=== PATIENT | male | born 2000 | race Asian ===

== ENCOUNTER 2022-09-16 02:23 | Emergency (ER) | payer OTHER ==
[2022-09-16 03:04] LABS: Absolute Lymphocytes (CBC) 1.7 K/uL (0.7-4.9); Hematocrit 39.8 % (39.6-49.0); Lymphocytes % 29.6 % (15.3-44.8); MCV 83.5 fL (80-100); MPV 7.6 fL (7.6-11.3); RBC Red Blood Cell Count 4.77 M/uL (4.33-5.43)
[2022-09-16 03:09] LABS: Protime INR 1.04
[2022-09-16] MEDS ORDERED: METOCLOPRAMIDE 10 MG/2mL INJ ONE (03:11)
[2022-09-16] MEDS ORDERED: D5 0.45 NS 1,000 ML IV ONE (03:11)
[2022-09-16] MEDS ORDERED: ONDANSETRON 4 MG/2 ML VIAL ONE (03:11)
[2022-09-16] MEDS ORDERED: NA CHLORIDE 0.9% 1,000 ML ONE (03:11)
[2022-09-16] MEDS ORDERED: THIAMINE 200 MG/2 ML INJ ONE (03:11)
[2022-09-16 03:17] LABS: Albumin 4.1 g/dL (3.4-5.0); BUN Blood Urea Nitrogen 12 mg/dL (7-18); Bicarbonate 25 mEq/L (21-32); Bilirubin Direct 0.2 mg/dL (0-0.2); Glucose Level 103 mg/dL (74-106); Potassium 3.4 mEq/L (3.5-5.1); Sodium Level 136 mEq/L (136-145)
[2022-09-16 03:27] LABS: AST/SGOT 37 U/L (15-37); Alkaline Phosphatase 51 U/L (45-117); Bilirubin Total 1.1 mg/dL (0.2-1.0); Glomerular Filtration Rate 119 ml/min (=/>90); Protein, Total 7.1 g/dL (6.4-8.2)
[2022-09-16 03:29] LABS: ALT/SGPT 28 U/L (16-61)
[2022-09-16 06:12] LABS: Urine Blood Negative (Negative); Urine Glucose Negative (Negative); Urine Protein Negative (Negative)
[2022-09-16 06:26] LABS: Barbiturates NEGATIVE (NEGATIVE); Benzodiazepines NEGATIVE (NEGATIVE); Cocaine NEGATIVE (NEGATIVE); METHAMPHETAM NEGATIVE (NEGATIVE); Methadone NEGATIVE (NEGATIVE); Opiates NEGATIVE (NEGATIVE); Phencyclidine NEGATIVE (NEGATIVE); THC Cannibis NEGATIVE (NEGATIVE)
--- NOTE | 2022-09-16 06:34 | EDPHYS ---
Physician Documentation [facility] Name: Lauri Pierson Age: 22 yrs Sex: Male : 2000 Arrival Date: 09/16/2022 Time: 02:24 Bed 4 Private MD: ED Physician Abilio Washington HPI: 09/16 02:28 This 22 yrs old Other Male presents to ER via Unassigned with complaints of sp4 intoxication. 05:40 22-year-old male presents with EMS for acute alcohol intoxication. Patient was found sp4 sitting in his car [place] the gas station, patient has apparently vomited in his car and was found to be unresponsive. On presentation patient is responsive to painful stimuli but is not able to communicate. Patient is obviously heavily intoxicated without signs of acute seizure and without signs of lateralizing weakness. . Historical: - Allergies: 02:24 No Known Allergies; ha1 - Home Meds: 02:24 None [Active]; ha1 - Immunization history:: Adult Immunizations up to date. - Social history:: Smoking status: unknown. - Family history:: not pertinent. ROS: 05:40 Constitutional: Patient not able to communicate any review of systems sp4 05:40 Unable to obtain ROS due to obtunded state, Heavy intoxication. Exam: 05:40 Constitutional: This is a well developed, well nourished patient and in no acute sp4 distress. Appears heavily intoxicated, moving all extremities, responds to painful stimuli, noncommunicative at this time. Shivering, not able to communicate and cooperate at this time Head/Face: Normocephalic, atraumatic. Eyes: Pupils equal round and reactive to light Lids and lashes normal. Conjunctiva and sclera are not injected. Cornea within normal limits. Periorbital areas with no swelling, redness, or edema. ENT: Nares patent. No nasal discharge, no septal abnormalities noted. Tympanic membranes are normal and external auditory canals are clear. Oropharynx with no redness, swelling, or masses, exudates, or evidence of obstruction, uvula midline. Mucous membranes moist. Positive gag reflex Neck: Trachea midline, no thyromegaly or masses palpated, and no cervical lymphadenopathy. Supple, No Meningismus. Chest/axilla: Normal chest wall appearance and motion. Nontender with no deformity. No lesions are appreciated. Cardiovascular: Regular rate and rhythm with a normal S1 and S2. No gallops, murmurs, or rubs. Normal PMI, no JVD. No pulse deficits. Respiratory: Lungs have equal breath sounds bilaterally, clear to auscultation and percussion. No rales, rhonchi or wheezes noted. No increased work of breathing, no retractions or nasal flaring. Abdomen/GI: Soft, non-tender, with normal bowel sounds. No distension or tympany. No guarding or rebound. Back: No spinal tenderness. No costovertebral tenderness. Male : Normal genitalia with no discharge or lesions. Skin: Warm, dry with normal turgor. Normal color with no rashes, no lesions, and no evidence of cellulitis. MS/ Extremity: Pulses equal, no cyanosis. No deformity, moves all extremities secondary to painful stimuli Neuro: Heavily intoxicated, somnolent, not oriented, exam is limited but grossly no not lateralizing deficits response to painful stimuli 05:40 ECG was reviewed by the Attending Physician. EKG time 0 2:55 AM there is normal sinus sp4 rhythm at a rate of 78, no ST elevation or depression, no ectopy, early repolarization, normal EKG overall Vital Signs: 02:24 BP 101 / 55; Pulse 76; Resp 14 S; Temp 97; Pulse Ox 99% on R/A; Weight 72.57 kg; ha1 03:20 BP 97 / 60; Pulse 78; Resp 13 S; Pulse Ox 99% on R/A; ha1 04:20 BP 99 / 50; Pulse 77; Resp 15; Pulse Ox 99% ; ha1 05:00 BP 94 / 55; Pulse 66; Resp 14 S; Pulse Ox 99% on R/A; ha1 06:00 BP 94 / 60; Pulse 86; Resp 17 S; Pulse Ox 100% on R/A; ha1 [place] Coma Score: 05:40 Eye Response: to pain(2). Motor Response: localizes pain(5). Verbal Response: sp4 incomprehensible(2). Total: 9. MDM: 02:39 Patient medically screened. sp4 05:40 Differential Diagnosis altered mental status, Alcohol intoxication, drug intoxication, sp4 head injury, substance abuse, lethargy, seizure,. Data reviewed: vital signs, nurses notes, EMS record, lab test result(s), amylase and lipase, cardiac enzymes, CBC, electrolytes, hepatic panel, EKG, radiologic studies, CT scan. 05:40 ED course: CT head and cervical spine without contrast, no acute findings. Patient's sp4 alcohol level 260 indicative of heavy alcohol intoxication. Awaiting for patient to sober up prior to discharge. 06:31 ED course: Patient woke up and feels better, patient is stable to go home. 09/16 02:37 Order name: EKG; Complete Time: 02:38 sp4 09/16 02:37 Order name: EKG - Nurse/Tech; Complete Time: 02:58 sp4 09/16 02:37 Order name: IV Saline Lock; Complete Time: 02:58 sp4 09/16 02:37 Order name: Labs collected and sent; Complete Time: 02:58 sp4 09/16 02:37 Order name: Suicide Screening ([place]); Complete Time: 02:58 sp4 09/16 02:37 Order name: CBC with Diff; Complete Time: 03:32 sp4 09/16 02:37 Order name: ETOH Level; Complete Time: 03:32 sp4 09/16 02:37 Order name: Salicylate; Complete Time: 03:32 sp4 09/16 02:37 Order name: PT-INR; Complete Time: 03:32 sp4 09/16 02:37 Order name: Ptt, Activated; Complete Time: 03:32 sp4 09/16 02:37 Order name: Acetaminophen; Complete Time: 03:42 sp4 09/16 02:37 Order name: Basic Metabolic Panel; Complete Time: 03:42 sp4 09/16 02:37 Order name: Hepatic Function; Complete Time: 03:42 sp4 09/16 02:38 Order name: CT Head C Spine 4 09/16 02:37 Order name: Urine Drug Screen; Complete Time: 06:31 sp4 09/16 02:37 Order name: Urine Dipstick-Ancillary (obtain specimen); Complete Time: 06:31 sp4 09/16 06:13 Order name: Urine Dipstick-Ancillary; Complete Time: 06:31 EDMS EC:40 Rate is 78 beats/min. Rhythm is regular. QRS [place] is Normal. CA interval is normal. QRS sp4 interval is normal. QT interval is normal. No ST changes noted. Clinical impression: Normal ECG and No evidence of ischemia. Administered Medications: 09/15 03:05 Drug: NS 0.9% IV 1000 ml Route: IV; Rate: 1 bolus; Site: right antecubital; ha1 09/16 03:05 Drug: D5-1/2 NS IV 1000 ml Route: IV; Rate: 150 ml/hr; Site: right antecubital; ha1 03:07 Drug: Ondansetron IVP 4 mg Route: IVP; Site: right antecubital; ha1 03:10 Drug: metoCLOPramide IVP 20 mg Route: IVP; Site: right antecubital; ha1 03:15 Drug: Thiamine IV 100 mg Route: IV; Rate: bolus; Site: right antecubital; 1 Disposition Summary: 09/16/22 06:34 Discharge Ordered Location: Home sp4 Problem: new sp4 Symptoms: have improved sp4 Condition: Stable sp4 Diagnosis - Alcohol use, unspecified with intoxication sp4 Followup: sp4 - With: Private Physician - When: As needed - Reason: Re-evaluation by your physician Forms: - Medication Reconciliation Form sp4 - Thank You Letter sp4 - Antibiotic Education sp4 - Prescription Opioid Use sp4 Signatures: Dispatcher [employer] Naa Laws RN RN [facility] Abilio Washington MD MD sp4
--- NOTE | 2022-09-16 06:34 | ER ---
Nurse's Notes [facility] Name: Lauri Pierson Age: 22 yrs Sex: Male : 2000 Arrival Date: 09/16/2022 Time: 02:24 Bed 4 Private MD: Diagnosis: Alcohol use, unspecified with intoxication Presentation: 09/16 02:24 Chief complaint: EMS states: 22 year old male was found by police inside his car, ha1 unconscious. The police reports that the pt. hot too much alcohol based on statements by friends that came to the scene. 02:24 Coronavirus screen:. Ebola Screen: No symptoms or risks identified at this time. ha1 Initial Sepsis Screen: Does the patient meet any 2 criteria? No. Patient's initial sepsis screen is negative. Does the patient have a suspected source of infection? No. Patient's initial sepsis screen is negative. Risk Assessment: Do you want to hurt yourself or someone else? Patient reports no desire to harm self or others. Onset of symptoms was September 16, 2022. 02:24 Method Of Arrival: EMS: [facility] ha1 02:24 Acuity: SARAH 3 ha1 Triage Assessment: 02:24 General: Appears comfortable, Behavior is drowsy. Pain: Unable to use pain scale. FLACC ha1 scale score is 0 out of 10. Neuro: Level of Consciousness is lethargic, Oriented to person. Cardiovascular: Capillary refill < 3 seconds Patient's skin is warm and dry. Rhythm is sinus rhythm. Respiratory: Airway is patent Respiratory effort is even, unlabored, Respiratory pattern is regular, symmetrical. GI: Abdomen is flat, non-distended. : No signs and/or symptoms were reported regarding the genitourinary system. Derm: Skin is healthy with good turgor, Skin is moist, Skin is normal. Historical: - Allergies: 02:24 No Known Allergies; ha1 - Home Meds: 02:24 None [Active]; ha1 - Immunization history:: Adult Immunizations up to date. - Social history:: Smoking status: unknown. - Family history:: not pertinent. Screenin:20 Abuse screen: Denies threats or abuse. Denies injuries from another. Nutritional ha1 screening: No deficits noted. Tuberculosis screening: No symptoms or risk factors identified. Assessment: 02:24 Reassessment: see triage assessment. ha1 03:20 Reassessment: Patient and/or family updated on plan of care and expected duration. Pain ha1 level reassessed. parents at bedside. Respiratory: Airway is patent Respiratory effort is even, unlabored, Respiratory pattern is regular, symmetrical. 04:20 Reassessment: Patient and/or family updated on plan of care and expected duration. Pain ha1 level reassessed. Neuro: Level of Consciousness is lethargic. Respiratory: Respiratory effort is even, unlabored, Respiratory pattern is regular, symmetrical. 05:20 Reassessment: Patient and/or family updated on plan of care and expected duration. Pain ha1 level reassessed. pt. stood up to use urinal with assistants of Tech and care provider. 05:20 Neuro: Level of Consciousness is confused, Oriented to person. ha1 Vital Signs: 02:24 BP 101 / 55; Pulse 76; Resp 14 S; Temp 97; Pulse Ox 99% on R/A; Weight 72.57 kg; ha1 03:20 BP 97 / 60; Pulse 78; Resp 13 S; Pulse Ox 99% on R/A; ha1 04:20 BP 99 / 50; Pulse 77; Resp 15; Pulse Ox 99% ; ha1 05:00 BP 94 / 55; Pulse 66; Resp 14 S; Pulse Ox 99% on R/A; ha1 06:00 BP 94 / 60; Pulse 86; Resp 17 S; Pulse Ox 100% on R/A; ha1 [place] Coma Score: 05:40 Eye Response: to pain(2). Motor Response: localizes pain(5). Verbal Response: sp4 incomprehensible(2). Total: 9. ED Course: 02:24 Patient arrived in ED. ja2 02:24 Patient has correct armband on for positive identification. Placed in gown. Bed in low ha1 position. Call light in reach. Side rails up X 1. Side rails up X2. 02:28 Abilio Washington MD is Attending Physician. sp4 02:37 Inserted saline lock: 20 gauge in right antecubital area, using aseptic technique. ha1 Blood collected. 02:39 Triage completed. ha1 04:05 CT Head C Spine In Process Unspecified. EDMS Administered Medications: 09/15 03:05 Drug: NS 0.9% IV 1000 ml Route: IV; Rate: 1 bolus; Site: right antecubital; ha1 09/16 03:05 Drug: D5-1/2 NS IV 1000 ml Route: IV; Rate: 150 ml/hr; Site: right antecubital; ha1 03:07 Drug: Ondansetron IVP 4 mg Route: IVP; Site: right antecubital; ha1 03:10 Drug: metoCLOPramide IVP 20 mg Route: IVP; Site: right antecubital; ha1 03:15 Drug: Thiamine IV 100 mg Route: IV; Rate: bolus; Site: right antecubital; ha1 Outcome: 06:34 Discharge ordered by sp4 Signatures: Dispatcher [employer] EDMisty Bryant Heidy, RN RN ha1 Abilio Washington MD MD sp4
[2022-09-16 07:51] VITALS: TEMP 97
[2022-09-16 07:56] VITALS: O2SAT 100
[2022-09-16 07:58] VITALS: BP 103/61
--- NOTE | 2022-09-17 20:53 | RAD REPORT ---
EXAM DESCRIPTION: CT - Head C Spine Mpr Wo Con - 09/16/2022 6:48 am CLINICAL HISTORY: CONFUSED COMPARISON: None. TECHNIQUE: CT HEAD AND CERVICAL SPINE WITHOUT CONTRAST on 09/16/2022 2:38 AM CDT This exam was performed according to our departmental dose-optimization program, which includes autom ated exposure control, adjustment of the mA and/or kV according to patient size and/or use of iterati ve reconstruction technique. FINDINGS: Brain: There is no acute hemorrhage, mass effect or midline shift. Whitehead-white differentiat ion is preserved. There is no hydrocephalus. There is no significant volume loss for age. The calvarium is intact. Orbits and globes are unremarkable. The paranasal sinuses are clear. Mastoid air cells are clear. Cervical Spine: There is no acute fracture. Alignment is anatomic. Disc spaces are maintained. Vertebral body heights are preserved. Soft tissues are unremarkable. IMPRESSION: No acute postraumatic findings. Electronically signed by: Ron Patrick MD 09/16/2022 5:10 AM CDT Due to temporary technical issues with the PACS/Fluency reporting system, reports are being signed by the in house radiologists without review as a courtesy to insure prompt reporting. The interpreting radiologist is fully responsible for the content of the report.
--- NOTE | 2022-09-19 17:44 | EKG ---
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
== END 2022-09-16 07:01 | disposition home or self-care (01) ==
LOC: ER 02:23
DX: F10.929 Alcohol use, unspecified with intoxication, unspecified (principal)
CPT/HCPCS: 96361; 93005; 85025; 80048; 36415; 85610; 80076; 85730; 81003; 80307; 70450; 72125; 96375; 96374; 99284; J3411; J2765; J2405; J7799; J7030; G0480 ×3